=== PATIENT | male | born 1975 | race African-American/Black ===

== ENCOUNTER 2017-03-11 20:40 | Emergency (ER) | payer BC ==
[~2017-03-11] VITALS: Ht 190.5 cm; Wt 100.0 kg
[~2017-03-11 20:40] MED LIST: GLUC1000 PO
[2017-03-11 20:42] VITALS: BP 134/90; PULSE 81; RESP 15; TEMP 98.7; O2SAT 97
[2017-03-11] MEDS ORDERED: METF1000 PO (20:55)
[2017-03-11 21:02] VITALS: BP 137/91; PULSE 65; RESP 18; O2SAT 99
--- NOTE | 2017-03-11 21:02 | PD ---
HPI Chief Complaint: Numbness/Tingling Time Seen by Provider: 21:01 Travel History International Travel<30 days: No Contact w/Intl Traveler<30days: No Traveled to known affect area: No History of Present Illness HPI 41-year-old male came to the emergency room with history of right sided weakness and headache for past 3 days. Patient says that for past 3 days his right upper extremity and right lower extremity has been feeling numb and his right side of the head has been hurting. He finally decided today to come to the emergency room since his father insisted. Vital signs were stable in the triage. Patient was actually walked from the triage to his room and he seemed to have ambulated without falling. Upon asking patient says he can walk but he has been dragging his leg. No history of fever or chills. No history of neck stiffness. Patient has never had these symptoms in the past. He has history of diabetes and his bedside blood glucose was 335. He is on metformin and he says he has been taking his medications like is supposed to. No history of vomiting or diarrhea. Denies any alcohol or drug abuse. [facility] Past Medical History Narrative Medical List of his past medical, surgical, social and family history as reviewed from the nursing note. Diabetes: Yes Patient Takes Glucophage: Yes (0900 03/11/17) Diminished Hearing: No Past Surgical History Surgical History: No Previous Surgery Social History Alcohol Use: No Tobacco Use: No Substance Use: No Allergies-Medications (Allergen,Severity, Reaction): Coded Allergies: No Known Allergies (Unverified , 04/20/16) Comments No known drug allergies. Reported Meds & Prescriptions Reported Meds & Active Scripts Active Reported Metformin (Metformin HCl) 1,000 Mg Tab 1,000 Mg PO BIDPC With meals Narrative Medication List of his home medications reviewed from the nursing note. Review of Systems Except as stated in HPI: all other systems reviewed are Neg Physical Exam Narrative GENERAL: Awake, alert, no obvious distress SKIN: Focused skin assessment warm/dry. HEAD: Atraumatic. Normocephalic. EYES: Pupils equal and round. No scleral icterus. No injection or drainage. ENT: No nasal bleeding or discharge. Mucous membranes pink and moist. NECK: Trachea midline. No JVD. CARDIOVASCULAR: Regular rate and rhythm. No murmur appreciated. RESPIRATORY: No accessory muscle use. Clear to auscultation. Breath sounds equal bilaterally. GASTROINTESTINAL: Abdomen soft, non-tender, nondistended. Hepatic and splenic margins not palpable. MUSCULOSKELETAL: No obvious deformities. No clubbing. No cyanosis. No edema. NEUROLOGICAL: Awake and alert. No obvious cranial nerve deficits. Strength in the right upper extremities 1-2 out of 5 and in the right lower extremities again 1-2 out of 5. Strength in the left upper and lower extremities 5 out of 5. Normal speech. PSYCHIATRIC: Appropriate mood and affect; insight and judgment normal. Data Data Last Documented VS Orders Orders Electrocardiogram (03/11/17 21:) Prothrombin Time / Inr (Pt) (03/11/17 21:) Complete Blood Count With Diff (03/11/17:) Basic Metabolic Panel (Bmp) (03/11/17 21:) Creatine Kinase (Cpk) (03/11/17 21:) Drug Screen, Random Urine (03/11/17 21:) Troponin I (03/11/17 21:) Ct Brain W/O Iv Contrast(Rout) (03/11/17 21:09) Chest, Single Ap (03/11/17 21:) Ecg Monitoring (03/11/17 21:) Iv Access Insert/Monitor (03/11/17 21:) Oximetry (03/11/17 21:) Sodium Chloride 0.9% Flush (Ns Flush) (03/11/17 21:15) Acetaminophen (Tylenol) (03/11/17 21:15) Sodium Chlor 0.9% 1000 Ml Inj (Ns 1000 M (03/11/17 21:15) Insulin Human Regular Inj (Novolin R Inj (03/11/17 23:00) Sodium Chlor 0.9% 1000 Ml Inj (Ns 1000 M (03/11/17 23:00) Ondansetron Inj (Zofran Inj) (03/11/17 23:09) Labs Laboratory Tests Test 03/11/17 21:25 03/11/17 23:00 White Blood Count 5.9 TH/MM3 Red Blood Count 4.96 MIL/MM3 Hemoglobin 15.3 GM/DL Hematocrit 44.8 % Mean Corpuscular Volume 90.3 FL Mean Corpuscular Hemoglobin 30.8 PG Mean Corpuscular Hemoglobin Concent 34.1 % Red Cell Distribution Width 12.8 % Platelet Count 214 TH/MM3 Mean Platelet Volume 8.1 FL Neutrophils (%) (Auto) 51.5 % Lymphocytes (%) (Auto) 39.0 % Monocytes (%) (Auto) 7.9 % Eosinophils (%) (Auto) 1.0 % Basophils (%) (Auto) 0.6 % Neutrophils # (Auto) 3.0 TH/MM3 Lymphocytes # (Auto) 2.3 TH/MM3 Monocytes # (Auto) 0.5 TH/MM3 Eosinophils # (Auto) 0.1 TH/MM3 Basophils # (Auto) 0.0 TH/MM3 CBC Comment DIFF FINAL Differential Comment Prothrombin Time 10.7 SEC Prothromb Time International Ratio 1.0 RATIO Blood Urea Nitrogen 12 MG/DL Creatinine 0.96 MG/DL Random Glucose 414 MG/DL Calcium Level 7.9 MG/DL Sodium Level 135 MEQ/L Potassium Level 3.6 MEQ/L Chloride Level 98 MEQ/L Carbon Dioxide Level 28.8 MEQ/L Anion Gap 8 MEQ/L Estimat Glomerular Filtration Rate 104 ML/MIN Total Creatine Kinase 177 U/L Troponin I LESS THAN 0.02 NG/ML Urine Opiates Screen NEG Urine Barbiturates Screen NEG Urine Amphetamines Screen NEG Urine Benzodiazepines Screen NEG Urine Cocaine Screen NEG Urine Cannabinoids Screen NEG MDM Medical Decision Making Medical Screen Exam Complete: Yes Emergency Medical Condition: Yes Medical Record Reviewed: Yes Interpretation(s) Twelve-lead EKG was reviewed by me. Normal sinus rhythm, normal axis, nonspecific ST-T wave changes. Heart rate of 79 bpm. Differential Diagnosis CVA, psychosomatic disorder Narrative Course 10:52 PM blood test results show hyperglycemia with blood glucose of 443. Patient was initially given 1 L of IV fluid bolus. I have ordered a second liter along with 10 units of regular insulin subcutaneously. Anion gap is maintained within normal range. Head CT is within normal limits. 11:13 PM patient was asked to ambulate and he reluctantly got up and walked about 100 steps slowly but without any significant weakness. I will discharge him home at this point. Procedures EKG Prior to Arrival: No Diagnosis Primary Impression: Hyperglycemia Additional Impression: Paresthesia Referrals: Primary Care Physician 3 days Additional Instructions: Please return to the ER if the condition worsens or any other new concerns. Otherwise follow-up with your primary care. Make sure you eat [employer] recommended diet which should not be more than 2000 екатерина a day. Take your medications like is supposed to. Check your blood sugar every day twice a day. Disposition: 01 DISCHARGE HOME Condition: Stable Jacobo Moya MD Mar 11, 2017 21:02
[2017-03-11] MEDS ORDERED: ACETAMINOPHEN 325 MG TAB PO ONE (21:15)
[2017-03-11] MEDS ORDERED: SODIUM CHLORIDE 0.9% FLUSH 10 ML FLUSH IVF PRN (21:15)
[2017-03-11] MEDS ORDERED: SODIUM CHLOR 0.9% 1000 ML INJ 1,000 ML IV ONE ×2 (21:15→23:00)
[2017-03-11 21:20] VITALS: O2SAT 98
[2017-03-11 21:38] LABS: BASOPHIL % 0.6 % (0.0-2.0); EOSINOPHIL # 0.1 TH/MM3 (0-0.4); HEMATOCRIT 44.8 % (39.0-51.0); HEMO FLAGS DIFF FINAL; LYMPHOCYTE # 2.3 TH/MM3 (1.0-4.8); MEAN CELL VOLUME 90.3 FL (80.0-100.0); MEAN CORPUSCULAR HEMOGLOBIN 30.8 PG (27.0-34.0); MEAN CORPUSCULAR HGB CONC 34.1 % (32.0-36.0); MONO % 7.9 % (0.0-8.0); NEUT % 51.5 % (16.0-70.0); PLATELET COUNT 214 TH/MM3 (150-450); RED BLOOD COUNT 4.96 MIL/MM3 (4.50-5.90); RED CELL DISTRIBUTION WIDTH 12.8 % (11.6-17.2); WHITE BLOOD COUNT 5.9 TH/MM3 (4.0-11.0)
--- NOTE | 2017-03-11 21:40 | RADRPT ---
EXAM DATE/TIME: 03/11/2017 21:22 [facility] COMPARISON: No previous studies available for comparison. INDICATIONS : Right sided pain and numbness. MEDICAL HISTORY : None. SURGICAL HISTORY : None. ENCOUNTER: Initial ACUITY: 3 days PAIN SCORE: 10/10 LOCATION: Right chest Side FINDINGS: A single view of the chest demonstrates the lungs to be symmetrically aerated without evidence of mas s, infiltrate or effusion. Minimal basilar atelectasis. The cardiomediastinal contours are unremarkab le. Osseous structures are intact. CONCLUSION: 1. Minimal basilar atelectasis. Abrahan Gillette MD on March 11, 2017 at 21:38 Board Certified Radiologist. This report was verified electronically.
--- NOTE | 2017-03-11 21:44 | RADRPT ---
EXAM DATE/TIME: 03/11/2017 21:19 [facility] COMPARISON: No previous studies available for comparison. INDICATIONS : Numbness on right side for three days and headache. RADIATION DOSE: 56.35 CTDIvol (mGy) MEDICAL HISTORY : Diabetes mellitus type 1. SURGICAL HISTORY : None. ENCOUNTER: Initial ACUITY: 3 days PAIN SCALE: 7/10 LOCATION: cranial TECHNIQUE: Multiple contiguous axial images were obtained of the head. Using automated exposure control and adj ustment of the mA and/or kV according to patient size, radiation dose was kept as low as reasonably a chievable to obtain optimal diagnostic quality images. DICOM format image data is available electro nically for review and comparison. FINDINGS: CEREBRUM: The ventricles are normal for age. No evidence of midline shift, mass lesion, hemorrhage or acute in farction. No extra-axial fluid collections are seen. POSTERIOR FOSSA: The cerebellum and brainstem are intact. The 4th ventricle is midline. The cerebellopontine angle i s unremarkable. EXTRACRANIAL: The visualized portion of the orbits is intact. SKULL: The calvaria is intact. No evidence of skull fracture. CONCLUSION: 1. No acute intracranial abnormalities. Incidental retention cyst left maxillary sinus. Abrahan Gillette MD on March 11, 2017 at 21:41 Board Certified Radiologist. This report was verified electronically.
[2017-03-11 21:54] LABS: PROTHROMBIN TIME - PATIENT 10.7 SEC (9.8-11.6)
[2017-03-11 22:35] LABS: ANION GAP 8 MEQ/L (5-15); BICARBONATE 28.8 MEQ/L (21.0-32.0); BLOOD UREA NITROGEN 12 MG/DL (7-18); CHLORIDE 98 MEQ/L (98-107); CREATINE KINASE 177 U/L (39-308); GLOMERULAR FILTRATION RATE 104 ML/MIN (>89); POTASSIUM 3.6 MEQ/L (3.5-5.1); SODIUM (NA) 135 MEQ/L (136-145)
[2017-03-11] MEDS ORDERED: INSULIN HUMAN REGULAR 1,000 UNITS/10 ML VIAL SQ ONE (23:00)
[2017-03-11 23:03] VITALS: BP 132/79; PULSE 65; RESP 16; O2SAT 98
[2017-03-11] MEDS ORDERED: ONDANSETRON HCL 4 MG/2 ML VIAL ONE (23:09)
--- NOTE | 2017-03-12 13:39 | EKG ---
Date Performed: 03/11/2017 Time Performed: 21:05:33 PTAGE: 41 years EKG: Sinus rhythm Compared to prior tracing no significant change NORMAL ECG PREVIOUS TRACING : 09/11/1996 06.50 DOCTOR: Osmin Mtz Interpretating Date/Time 03/12/2017 13:38:28
== END 2017-03-12 00:14 | disposition home or self-care (01) ==
LOC: NEPC 20:40
DX: E11.65 Type 2 diabetes mellitus with hyperglycemia (principal); Z79.84 Long term (current) use of oral hypoglycemic drugs
CPT/HCPCS: 70450; 71010; 80048; 80307; 82550; 84484; 85025; 85610; 93005; 96360; 96361; 96372; 99285; J1815; J2405; J7030